=== PATIENT | female | born 1990 | race Caucasian/White ===

== ENCOUNTER → 2017-05-16 | Outpatient (CLI) | payer OTHER ==
--- NOTE | ~2017-05-16 | CNG ---
[facility] [place] [address] CYTO-NONGYN REPORT PROCEDURE Name: MYNOR BLACKWOOD Room #: REG ANIVAL Kent.Cedrick.#: [id number] Admission: 05/16/17 Date of : 89 Discharge: Report #: [id number] Path Case #: [id number] CYTOPATHOLOGY REPORT COLLECTION DATE: 05/16/2017 RECEIVED DATE: 05/16/2017 SUBMITTING PHYS: Dr. Valeriano Melendez OTHER PHYS: Dr. Rustam Lebron CLINICAL HISTORY: Left thyroid nodule. SPECIMEN(S) RECEIVED: A.US guided Fine needle aspiration, Left thyroid * * * * * * * * * * * * FINAL DIAGNOSIS: A. Thyroid, left thyroid, US guided Fine needle aspiration: [place] CATEGORY V. SUSPICIOUS FOR PAPILLARY CARCINOMA. SPECIMEN CONSISTS OF FOLLICULAR CELLS WITH NUCLEAR ENLARGEMENT, NUCLEAR PALLOR WITH GROOVES. INTRANUCLEAR INCLUSIONS ARE RARE. THIS PATTERN IS SUSPICIOUS FOR PAPILLARY CARCINOMA. COMMENT: There is extensive air-drying artifact present on the fixed smears limiting interpretation. These cells are not well represented in the Thinprep smear prepared as well as the cell block. A RNARetain vial is present if required for molecular studies. [place]: Dr. Neil Santos. (IUV; 05/17/17) PATHOLOGIST: Luz Maria Clay M.D. REPORT ELECTRONICALLY SIGNED BY: Luz Maria Clay M.D. DATE/TIME: 05/17/2017 17:03 * * * * * * * * * * * * GROSS PATHOLOGY: A. US guided Fine needle aspiration, Left thyroid: The specimen is labeled "Mynor Blackwood" and consists of two fixed slides, two air dried slides. Ten mL of clear red fluid in fixative from the needle rinse is also submitted and one ThinPrep slide and a cell block were prepared from this material. (clt 05.16.2017) Also received is the RNARetain vial which will be held for molecular studies if needed. [employer](S): ASCENCION Vaughan(ASCP) INITIAL CPT CODE(S): A; [address]019, [id number] [address] CYTO-NONGYN REPORT PROCEDURE Name: MYNOR BLACKWOOD Room #: REG ANIVAL Herrera#: [id number] Admission: 05/16/17 Date of : 89 Discharge: Report #: [id number] Path Case #: [id number] Professional services performed by [facility] [address], [place] [address] [facility] by [facility] at [address] [place] [address]., [address], [place] [address]. [address], [facility] [address] [place] [address] PHONE: [phone] DIRECTOR: Gildardo Phillip M.D. * * * END OF REPORT * * *
== END | disposition home or self-care (01) ==
LOC: ULTRA 09:36
DX: D34 Benign neoplasm of thyroid gland (principal)